=== PATIENT | male | born 1995 | race Caucasian/White ===

== ENCOUNTER 2020-10-01 22:55 | Emergency (ER) | payer SELFPAY ==
--- NOTE | 2020-10-02 00:05 | ER ---
Nurse's Notes [facility] Name: Derik Lange Jr Age: 25 yrs Sex: Male : 1995 Arrival Date: 10/01/2020 Time: 22:59 Bed Waiting Private MD: Diagnosis: Other specified local infections of the skin and subcutaneous tissue Presentation: 10/01 23:48 Chief complaint: Patient states: he developed some "rashes" on bilateral lower legs bb starting thought it was his rubber boots but it is not going away. Coronavirus screen: At this time, the client does not indicate any symptoms associated with coronavirus-19. Ebola Screen: No symptoms or risks identified at this time. Initial Sepsis Screen: Does the patient meet any 2 criteria? No. Patient's initial sepsis screen is negative. Does the patient have a suspected source of infection? No. Patient's initial sepsis screen is negative. Risk Assessment: Do you want to hurt yourself or someone else? Patient reports no desire to harm self or others. Onset of symptoms was September 27, 2020. 23:48 Method Of Arrival: Ambulatory bb 23:48 Acuity: KENDRA 5 bb 23:55 Note Vinny NUNEZ in triage for pt evaluation. Pt to be discharged with RX and wound bb care instructions. Pt verbalized understanding of and agrees to plan of care discharge instructions given. Triage Assessment: 23:51 General: Appears in no apparent distress. Behavior is calm, cooperative. Pain: bb Complains of pain in right leg and left leg Pain currently is 7 out of 10 on a pain scale. Neuro: Level of Consciousness is awake, alert, obeys commands, Oriented to person, place, time, situation. Cardiovascular: Capillary refill < 3 seconds Patient's skin is warm and dry. Respiratory: Respiratory effort is even, unlabored, Respiratory pattern is regular. GI: No signs and/or symptoms were reported involving the gastrointestinal system. Derm: Rash noted that is several areas to bilateral lower extremities. Musculoskeletal: Circulation, motion, and sensation intact. Historical: - Allergies: 23:51 No Known Allergies; bb - Home Meds: 23:51 None [Active]; bb - PMHx: 23:51 None; bb - PSHx: 23:51 None; bb - Immunization history:: Adult Immunizations up to date. - Social history:: Smoking status: Patient denies any tobacco usage or history of. Patient uses alcohol, but reports only rare drinking. Patient/guardian denies using street drugs. Screenin:56 Abuse screen: Denies threats or abuse. Nutritional screening: No deficits noted. bb Tuberculosis screening: No symptoms or risk factors identified. Fall Risk None identified. Assessment: 23:56 Reassessment: No changes from previously documented assessment. see triage assessment. bb Vital Signs: 23:48 BP 128 / 82; Pulse 93; Resp 16 S; Temp 98.6(O); Pulse Ox 98% on R/A; Weight 120.2 kg bb (R); Height 5 ft. 10 in. (177.80 cm) (R); Pain 7/10; 23:48 Body Mass Index 38.02 (120.20 kg, 177.80 cm) bb ED Course: 22:59 Patient arrived in ED. es 23:51 Triage completed. bb 23:51 Arm band placed on. bb 23:55 Ciara Mendoza RN is Primary Nurse. bb 23:57 Vinny Hager PA is PHCP. cp 23:57 Vinny Vyas MD is Attending Physician. cp 23:57 Patient has correct armband on for positive identification. bb 23:57 No provider procedures requiring assistance completed. Patient did not have IV access bb during this emergency room visit. Administered Medications: No medications were administered Outcome: 23:57 Discharged to home ambulatory. bb 23:57 Condition: stable 23:57 Discharge instructions given to patient, Instructed on discharge instructions, follow up and referral plans. medication usage, wound care, Demonstrated understanding of instructions, follow-up care, Prescriptions given X 2. 10/02 00:04 Discharge ordered by . cp 00:12 Patient left the ED. bb Signatures: Alejandra Soriano Brenda RN RN Vinny Walker PA PA cp
--- NOTE | 2020-10-02 00:05 | EDPHYS ---
Physician Documentation [facility] Name: Derik Lange Jr Age: 25 yrs Sex: Male : 1995 Arrival Date: 10/01/2020 Time: 22:59 Bed Waiting Private MD: ED Physician Vinny Vyas HPI: 10/01 23:57 This 25 yrs old Male presents to ER via Ambulatory with complaints of Rash. cp 23:57 The patient's rash thought to be caused by an unknown cause. The rash is located on the cp left calf and right calf. The rash can be described as erythematous, plaque-like, warm. Onset: The symptoms/episode began/occurred last week, and became worse today. Associated signs and symptoms: Pertinent positives: Pain Pertinent negatives: fever. Historical: - Allergies: 23:51 No Known Allergies; bb - Home Meds: 23:51 None [Active]; bb - PMHx: 23:51 None; bb - PSHx: 23:51 None; bb - Immunization history:: Adult Immunizations up to date. - Social history:: Smoking status: Patient denies any tobacco usage or history of. Patient uses alcohol, but reports only rare drinking. Patient/guardian denies using street drugs. ROS: 23:58 Constitutional: Negative for body aches, chills, fever, poor PO intake. cp 23:58 Respiratory: Negative for cough, shortness of breath, wheezing. 23:58 Abdomen/GI: Negative for abdominal pain, nausea, vomiting, and diarrhea. 23:58 Skin: Positive for rash, of the left calf and right calf. 23:58 Neuro: Negative for altered mental status, headache, weakness. 23:58 All other systems are negative. Exam: 10/02 00:00 Head/Face: Normocephalic, atraumatic. cp Constitutional: The patient appears in no acute distress, alert, awake, non-toxic, well developed, well nourished. Chest/axilla: Inspection: normal. Cardiovascular: Rate: normal. Respiratory: the patient does not display signs of respiratory distress, Respirations: normal. Skin: rash can be described as erythematous, excoriated, plaque-like, on the left calf and right calf. Vital Signs: 10/01 23:48 BP 128 / 82; Pulse 93; Resp 16 S; Temp 98.6(O); Pulse Ox 98% on R/A; Weight 120.2 kg bb (R); Height 5 ft. 10 in. (177.80 cm) (R); Pain 7/10; 23:48 Body Mass Index 38.02 (120.20 kg, 177.80 cm) bb MDM: 10/02 00:02 Differential diagnosis: impetigo, cellulitis, dermatitis. Data reviewed: vital signs, cp nurses notes, and as a result, I will discharge patient. Counseling: I had a detailed discussion with the patient and/or guardian regarding: the historical points, exam findings, and any diagnostic results supporting the discharge/admit diagnosis, to return to the emergency department if symptoms worsen or persist or if there are any questions or concerns that arise at home. 00:04 Patient medically screened. cp Administered Medications: No medications were administered Disposition: 00:15 Chart complete. cp 07:05 Co-signature as Attending Physician, Vinny Vyas MD I agree with the assessment and awilda plan of care. Disposition Summary: 10/02/20 00:04 Discharge Ordered Location: Home cp Problem: new cp Symptoms: are unchanged cp Condition: Stable cp Diagnosis - Other specified local infections of the skin and subcutaneous tissue cp Followup: cp - With: Private Physician - When: 2 - 3 days - Reason: Worsening of condition Discharge Instructions: - Discharge Summary Sheet cp Forms: - Medication Reconciliation Form cp - Thank You Letter cp - Work release form bb - Antibiotic Education cp - Prescription Opioid Use cp Prescriptions: - mupirocin 2 % Topical ointment - apply 1 application by TOPICAL route 3 times per day for 8-10 days; 30 gram; cp Refills: 0, Product Selection Permitted - Doxycycline Hyclate 100 mg Oral Tablet - take 1 tablet by ORAL route every 12 hours; 20 tablet; Refills: 0, Product cp Selection Permitted Signatures: Vinny Vyas MD MD cha Ballard, Brenda, RN RN Vinny Walker PA PA cp
[2020-10-02 00:55] VITALS: BP 128/82; TEMP 98.6; O2SAT 98
== END 2020-10-02 00:12 | disposition home or self-care (01) ==
LOC: ER 22:55
DX: L08.89 Other specified local infections of the skin and subcutaneous tissue (principal)
CPT/HCPCS: 99282